=== PATIENT | male | born 1960 | race African-American/Black ===

== ENCOUNTER → 2017-09-26 | Outpatient (CLI) | payer BC ==
--- NOTE | 2017-09-26 12:07 | US ---
EXAMINATION TYPE: US venous doppler duplex LE LT DATE OF EXAM: 09/26/2017 11:27 AM COMPARISON: NONE CLINICAL HISTORY: I82.432 ACUTE VEIN THROMBOSIS. SIDE PERFORMED: Left TECHNIQUE: The lower extremity deep venous system is examined utilizing real time linear array sonog madeline with graded compression, doppler sonography and color-flow sonography. VESSELS IMAGED: External Iliac Vein (EIV) Common Femoral Vein Deep Femoral Vein Greater Saphenous Vein * Femoral Vein Popliteal Vein Small Saphenous Vein * Proximal Calf Veins (* superficial vessels) Left Leg: Positive for DVT from the popliteal to the proximal calf vein. IMPRESSION: 1. Findings are compatible with a DVT from the popliteal vein extending into the calf veins. Dr. Farrell was notified by telephone.
== END | disposition home or self-care (01) ==
LOC: RADUSWWP 11:11
PROVIDERS: ATTEND Internal Medicine
DX: I82.432 Acute embolism and thrombosis of left popliteal vein (principal)

== ENCOUNTER → 2017-12-04 | Outpatient (CLI) | payer BC ==
[2017-12-04 11:02] LABS: HCT 45.4 % (39.0-53.0); HGB 13.8 gm/dL (13.0-17.5); Hypochromasia Moderate; MCH 25.4 pg (25.0-35.0); MCHC 30.4 g/dL (31.0-37.0); MCV 83.7 fL (80.0-100.0); Mean Platelet Volume 6.9; Platelet Count 273 k/uL (150-450); RBC 5.43 m/uL (4.30-5.90); RDW 15.1 % (11.5-15.5); WBC 8.5 k/uL (3.8-10.6)
[2017-12-04 11:03] LABS: INR 1.2 (<1.2); Partial Thromboplastin Time 29.5 sec (22.0-30.0); Prothrombin Time 11.2 sec (9.0-12.0)
[2017-12-04 11:12] LABS: Anion Gap 10 mmol/L; Blood Urea Nitrogen 5 mg/dL (9-20); Calcium 9.2 mg/dL (8.4-10.2); Carbon Dioxide 25 mmol/L (22-30); Chloride 106 mmol/L (98-107); Glucose 96 mg/dL (74-99); Potassium 4.5 mmol/L (3.5-5.1); Sodium 141 mmol/L (137-145)
== END | disposition home or self-care (01) ==
LOC: LABWHC1 09:51
PROVIDERS: ATTEND Surgery Vascular Surgery
DX: Z01.812 Encounter for preprocedural laboratory examination (principal); I70.223 Atherosclerosis of native arteries of extremities with rest pain, bilateral legs
CPT/HCPCS: 36415; 80048; 85027; 85610; 85730

== ENCOUNTER → 2021-04-02 | Outpatient (CLI) | payer OTHER ==
[2021-04-02 12:02] LABS: Basophils # (A) 0.05 X 10*3/uL (0.00-0.10); Basophils % (A) 0.6 %; Eosinophils % (A) 6.7 %; HGB 13.7 g/dL (13.0-17.0); Lymphocytes # (A) 2.46 X 10*3/uL (0.90-5.00); Lymphocytes % (A) 27.7 %; MCH 30.8 pg (27.0-32.0); MCHC 31.9 g/dL (32.0-37.0); MCV 96.6 fL (80.0-97.0); Monocytes # (A) 0.89 X 10*3/uL (0.20-1.00); Neutrophils # (A) 4.85 X 10*3/uL (1.80-7.70); Neutrophils % (A) 54.6 %; Platelet Count 230 X 10*3/uL (140-440); RBC 4.45 X 10*6/uL (4.40-5.60); WBC 8.89 X 10*3/uL (4.50-10.00)
[2021-04-03 07:10] LABS: African American GFR (CKD) 94.4 (60.0-200.0); Albumin 3.9 g/dL (3.80-4.90); Albumin/Globulin Ratio 1.34 (1.60-3.17); Anion Gap 7.5 mmol/L (4.00-12.00); Calcium 9.2 mg/dL (8.7-10.3); Carbon Dioxide 22.5 mmol/L (21.6-31.8); Chol/HDL Ratio 3.68; Globulin 2.9 g/dL (1.6-3.3); LDL Cholesterol,Calculated 68.2 mg/dL (0.0-131.0); Non-African American GFR(CKD) 81.4 (60.0-200.0); Potassium 4.5 mmol/L (3.5-5.5); Total Protein 6.8 g/dL (6.2-8.2); VLDL Calculation 22.8 mg/dL (5.00-40.00)
== END | disposition home or self-care (01) ==
LOC: LABWHC1 08:50
PROVIDERS: ATTEND Physician Assistant
DX: E78.5 Hyperlipidemia, unspecified (principal); I42.9 Cardiomyopathy, unspecified
CPT/HCPCS: 36415; 80053; 80061; 82550; 85025

== ENCOUNTER → 2022-01-26 | Outpatient (CLI) | payer OTHER ==
--- NOTE | 2022-01-26 11:35 | XR ---
EXAMINATION TYPE: XR chest 2V DATE OF EXAM: 01/26/2022 COMPARISON: Chest x-ray 08/07/2017 HISTORY: Shortness of breath, cough, smoker TECHNIQUE: Frontal and lateral views of the chest are obtained. FINDINGS: There is no focal air space opacity, pleural effusion, or pneumothorax seen. The cardiac silhouette size is within normal limits. There has been interval placement of a generator in the left pectoral region, leads are present in the right atrium and ventricle. Prominent lung volume could be indicative of underlying COPD. Cardiac mediastinal silhouette is stable. There are coronary artery c alcifications, possible stent. The osseous structures are intact. IMPRESSION: No acute cardiopulmonary process.
[2022-01-26 15:10] LABS: ALT 24 U/L (10-49); AST 29 U/L (14-35); African American GFR (CKD) 46.4 (60.0-200.0); Albumin 3.2 g/dL (3.8-4.9); Albumin/Globulin Ratio 0.98 (1.60-3.17); Alkaline Phosphatase 123 U/L (41-126); BUN/Creat Ratio 8.16 Ratio (12.00-20.00); Blood Urea Nitrogen 14.6 mg/dL (9.0-27.0); Calcium 8.6 mg/dL (8.7-10.3); Carbon Dioxide 21.9 mmol/L (20.0-27.5); Chloride 104 mmol/L (96-109); Creatine Kinase 50 U/L (35-257); Globulin 3.3 g/dL (1.6-3.3); Glucose 97 mg/dL (70-110); Phosphorus 2.9 mg/dL (2.4-5.1); Potassium 4.7 mmol/L (3.5-5.5); Sodium 134 mmol/L (135-145); Total Protein 6.5 g/dL (6.2-8.2); Uric Acid 5.9 mg/dL (3.7-8.7)
[2022-01-26 15:38] LABS: Erythrocyte Sedimentation Rate 47 mm/Hr (0-20)
[2022-01-26 15:48] LABS: Basophils # (A) 0.05 X 10*3/uL (0.00-0.10); Basophils % (A) 0.6 %; Chol/HDL Ratio 4.76 Ratio; Eosinophils # (A) 0.46 X 10*3/uL (0.04-0.35); Eosinophils % (A) 5.1 %; HCT 36.4 % (39.6-50.0); HGB 10.6 g/dL (13.0-17.0); Immature Grans, Automated 0.7 %; Lymphocytes # (A) 1.13 X 10*3/uL (0.90-5.00); Lymphocytes % (A) 12.6 %; MCH 27.5 pg (27.0-32.0); MCHC 29.1 g/dL (32.0-37.0); MCV 94.3 fL (80.0-97.0); Mean Platelet Volume 13.8 fL (9.5-12.2); Monocytes # (A) 0.81 X 10*3/uL (0.20-1.00); Monocytes % (A) 9.1 %; NRBC Per 100 WBC 0 /100 WBCS (0.0-0.0); Neutrophils # (A) 6.43 X 10*3/uL (1.80-7.70); Neutrophils % (A) 71.9 %; Platelet Count 210 X 10*3/uL (140-440); RBC 3.86 X 10*6/uL (4.40-5.60); RBC Morphology NORMAL; RDW 15.3 % (11.5-14.5); WBC 8.94 X 10*3/uL (4.50-10.00)
[2022-01-26 16:39] LABS: Hepatitis A Antibody IgM Nonreactive (Nonreactive); Hepatitis B Core IgM Nonreactive (Nonreactive); Hepatitis C IgG Antibody Nonreactive (Nonreactive)
[2022-01-26 17:51] LABS: Hepatitis B Surface Antigen Confirmed reactive (Nonreactive)
[2022-01-26 18:18] LABS: Appearance,Urine Cloudy (Clear); Bilirubin,Urine Negative (Negative); Blood,Urine Large (Negative); Color,Urine Dark Yellow (Yellow); Ketones,Urine Trace mg/dL (Negative); Nitrite,Urine Negative (Negative); Specific Gravity,Urine 1.019 (1.001-1.030)
[2022-01-26 18:26] LABS: Bacteria,Urine 1+ /HPF (None Seen)
== END | disposition home or self-care (01) ==
LOC: LABWHC1 10:40
PROVIDERS: ATTEND Internal Medicine
DX: Z00.00 Encounter for general adult medical examination without abnormal findings (principal); D64.9 Anemia, unspecified; N40.0 Benign prostatic hyperplasia without lower urinary tract symptoms; J44.9 Chronic obstructive pulmonary disease, unspecified; I10 Essential (primary) hypertension; E87.8 Other disorders of electrolyte and fluid balance, not elsewhere classified; M10.9 Gout, unspecified; R31.9 Hematuria, unspecified; E78.5 Hyperlipidemia, unspecified; E11.65 Type 2 diabetes mellitus with hyperglycemia; I25.10 Atherosclerotic heart disease of native coronary artery without angina pectoris
CPT/HCPCS: 36415; 71046; 80053; 80061; 80074; 81001; 82306; 82550; 83036; 83735; 84100; 84153; 84443; 84550; 85025; 85652; 86140

== ENCOUNTER → 2022-07-14 | Outpatient (CLI) | payer MEDICARE, OTHER ==
--- NOTE | 2022-07-14 16:21 | CT ---
EXAMINATION TYPE: CT abdomen pelvis w con DATE OF EXAM: 07/14/2022 COMPARISON: NONE HISTORY: 61-year-old male colovesical fistula and recent UTI TECHNIQUE: Contiguous axial scanning of the abdomen and pelvis following administration of 70 ml Isov ue 300 IV contrast. Delayed images through the kidneys and coronal/sagittal reconstructions performe d. CT DLP: 1227 mGycm Automated exposure control for dose reduction was used. FINDINGS: LUNG BASES: Right atrial and right ventricular AICD leads noted. Heart normal size without pericardia l effusion. There is some patchy nodular groundglass and tree-in-bud changes in the basilar left lowe r lobe. No pleural effusion. LIVER/GB: Multiple hepatic cysts measuring up to 3.0 cm. There is hypervascular area of nodularity in the right hepatic dome measuring 1.5 cm. This could represent a flash filling hemangioma or vascular shunting. Large appearance to the main portal vein at 1.7 cm. The vessel remains patent. Finding is nonspecific but may be seen in setting of portal venous hypertension. No biliary ductal dilatation. I ncidental 5 mm gallstone. No abnormal gallbladder distention. PANCREAS: Punctate calcifications of the pancreatic head suggest chronic pancreatitis. Possible fat s tranding adjacent to the tail the pancreas versus edema from the adjacent left pararenal space. Corre late with amylase and lipase levels. SPLEEN: No significant abnormality is seen. ADRENALS: No significant abnormality is seen. KIDNEYS: Moderate to severe left-sided hydronephrosis. Additional hydroureter. There is abrupt cut of f of the distal left ureter at the level of lobulated soft tissue which involves the left-sided super ior aspect of the prostate gland and left posterior bladder base. The soft tissue measures up to 8.8 x 6.7 x 6.4 cm there is direct abutment with the inferior wall of the mid sigmoid colon, sagittal dhruv ge 40. There may be some loss of the fat plane on coronal image 58. No dilated small bowel, free fluid, or free air. There is moderate to large stool burden. Oral contra st has progressed into the ascending colon. Postsurgical changes of aortobifemoral bypass graft which remains patent. Abnormal changes to the bladder as mentioned above. A number of left-sided pelvic phleboliths are pre sent no abnormal fluid collection in the pelvis. No pelvic lymphadenopathy seen. Bones: Suspect prominent bony enthesopathy from the anterior aspects of the superior pubic rami. Mild degenerative change of both hips. Facet arthropathy lower lumbar spine. Mild degenerative disc disea se throughout. IMPRESSION: 1. LARGE LOBULATED MASS MEASURING 8.8 CM CENTERED ALONG THE LEFT SIDE AND SUPERIOR ASPECT OF THE PROS MARIEE GLAND AND LEFT POSTERIOR BASE OF THE BLADDER. THE MASS SHOWS EXTENSIVE INVOLVEMENT ALONG THE POS TERIOR WALL OF THE BLADDER. CORRELATE FOR INVADING PROSTATE CANCER VERSUS UROTHELIAL CARCINOMA. 2. THE MASS RESULTS IN ABRUPT CUT OFF OF THE DISTAL LEFT URETER. THERE IS SECONDARY MODERATE TO SEVER E LEFT HYDRONEPHROSIS. THE MASS DOES ABUT THE INFERIOR WALL OF THE MID SIGMOID COLON AND ON CORONAL S ERIES, THERE MAY BE SOME LOSS OF THE INTERVENING FAT PLANE. THIS MAY REFLECT EARLY SEROSAL INVASION. NO ANNALISE FISTULA SEEN. 3. QUESTIONABLE FAT STRANDING ADJACENT TO THE TAIL OF THE PANCREAS VERSUS REACTIVE EDEMA FROM THE ADJ ACENT LEFT PARARENAL SPACE. CORRELATE WITH AMYLASE AND LIPASE LEVELS TO EXCLUDE ANY ACUTE PANCREATITI S. 4. NODULAR GROUNDGLASS INFILTRATE AT THE BASILAR LEFT LOWER LOBE. CORRELATE FOR INFECTIOUS OR ASPIRAT ION PNEUMONITIS. 5. PATENT AORTOBIFEMORAL BYPASS GRAFT.
== END | disposition home or self-care (01) ==
LOC: RADCTMAIN 13:25
PROVIDERS: ATTEND Urology
DX: N32.1 Vesicointestinal fistula (principal); N32.89 Other specified disorders of bladder; N13.30 Unspecified hydronephrosis; R91.8 Other nonspecific abnormal finding of lung field; Z95.1 Presence of aortocoronary bypass graft; Z87.440 Personal history of urinary (tract) infections
CPT/HCPCS: 74177; Q9967

== ENCOUNTER → 2022-07-21 | Outpatient (CLI) | payer OTHER ==
[2022-07-21 18:35] LABS: African American GFR (CKD) 50.4 (60.0-200.0); Albumin 3.4 g/dL (3.8-4.9); Albumin/Globulin Ratio 1.14 (1.60-3.17); Anion Gap 6.4 mmol/L (10.00-18.00); BUN/Creat Ratio 7.84 Ratio (12.00-20.00); Blood Urea Nitrogen 13.1 mg/dL (9.0-27.0); Calcium 9.2 mg/dL (8.7-10.3); Carbon Dioxide 25.4 mmol/L (20.0-27.5); Non-African American GFR(CKD) 43.5 (60.0-200.0); Potassium 5.7 mmol/L (3.5-5.5); Total Bilirubin 0.5 mg/dL (0.30-1.20); Total Protein 6.4 g/dL (6.2-8.2)
[2022-07-21 18:45] LABS: Basophils # (A) 0.08 X 10*3/uL (0.00-0.10); Eosinophils # (A) 0.66 X 10*3/uL (0.04-0.35); Eosinophils % (A) 8.7 %; HCT 39.2 % (39.6-50.0); HGB 11.8 g/dL (13.0-17.0); Immature Grans, Automated 0.5 %; Lymphocytes # (A) 1.71 X 10*3/uL (0.90-5.00); Lymphocytes % (A) 22.4 %; MCH 28.9 pg (27.0-32.0); MCHC 30.1 g/dL (32.0-37.0); MCV 95.8 fL (80.0-97.0); Monocytes # (A) 0.69 X 10*3/uL (0.20-1.00); NRBC Per 100 WBC 0 /100 WBCS (0.0-0.0); Neutrophils # (A) 4.45 X 10*3/uL (1.80-7.70); Neutrophils % (A) 58.4 %; Platelet Count 295 X 10*3/uL (140-440); RBC 4.09 X 10*6/uL (4.40-5.60); RDW 13.6 % (11.5-14.5); WBC 7.63 X 10*3/uL (4.50-10.00)
[2022-07-21 20:18] LABS: Appearance,Urine Cloudy (Clear); Bilirubin,Urine Negative (Negative); Blood,Urine Large (Negative); Color,Urine Yellow (Yellow); Ketones,Urine Negative (Negative); Nitrite,Urine Negative (Negative); Specific Gravity,Urine 1.016 (1.001-1.030)
[2022-07-21 22:23] LABS: Bacteria,Urine Trace /HPF (None Seen); Yeast (UA) Present /LPF (None Seen)
== END | disposition home or self-care (01) ==
LOC: LABWHC1 10:17
PROVIDERS: ATTEND Urology
DX: Z01.812 Encounter for preprocedural laboratory examination (principal); D49.4 Neoplasm of unspecified behavior of bladder; R31.29 Other microscopic hematuria
CPT/HCPCS: 36415; 80053; 81001; 85025; 87086

== ENCOUNTER 2022-07-26 08:39 | Day surgery (SDC) | payer OTHER ==
--- NOTE | 2022-07-25 18:13 | P.GSHP ---
History of Present Illness H&P Date: 07/25/22 61 yo male sent by Dr Eduardo in the end of april because of a psa of 6.1 He had an e coli uti so therefore he was treated with antibiotics with a return visit for cysto and repeat psa. He returned stating that the symptoms of difficulty had worsened and the uti appeared to be still present. the rectal exam showed a 30 gm benign feeling prostate but cysto showed marled lobulation and edema of the left lateral wall of the bladder worrisome for a colovesical fistula. He thus underwent a ct urogram and this showed a large mass like effect in the bladder. He thus comes for anesthetic cysto with biopsies to r/o bladder or prostate cancer. - Constitutional Constitutional: Denies chills, Denies fever - EENT Eyes: denies blurred vision, denies pain Ears, nose, mouth and throat: Denies headache, Denies sore throat - Cardiovascular Cardiovascular: Denies chest pain, Denies shortness of breath - Respiratory Respiratory: Denies cough, Denies 7 - Gastrointestinal Gastrointestinal: Denies abdominal pain, Denies diarrhea, Denies nausea, Denies vomiting - Genitourinary (Female) Genitourinary: Denies dysuria, Denies hematuria - Genitourinary (Male) Genitourinary: Denies dysuria, Denies hematuria - Musculoskeletal Musculoskeletal: Denies myalgias - Integumentary Integumentary: Denies pruritus, Denies rash - Neurological Neurological: Denies numbness, Denies weakness - Psychiatric Psychiatric: Denies anxiety, Denies depression - Endocrine Endocrine: Denies fatigue, Denies weight change Past Medical History Past Medical History: Coronary Artery Disease (CAD), Heart Failure, GI Bleed, Hypertension, Myocardial Infarction (AR), Prostate Disorder Additional Past Medical History / Comment(s): Peripheral vascular disease, past medical chart listed high cholesterol pt didn't recall this. Last Myocardial Infarction Date:: 04/13/2017 History of Any Multi-Drug Resistant Organisms: MRSA Date of last positivie culture/infection: 08/26/18 MDRO Source:: leg Past Surgical History: AICD, Heart Catheterization With Stent, Prostate Surgery Additional Past Surgical History / Comment(s): ICD= CustomMade [employer] MRI- [id number], #[id number] (PER DR AHMED FOR HEART FAILURE. 05-18-16 heart cath w/stent to lad. past sx include: stents to moise legs 2010, 1996 growth removed lt side of pelvis-benign, prostate sx "to improve stream". Past Anesthesia/Blood Transfusion Reactions: No Reported Reaction Additional Past Anesthesia/Blood Transfusion Reaction / Comment(s): claustrophobia Date of Last Stent Placement:: 04/13/2017 Type of Cardiac Device: AICD Device Placement Date:: 04/10/18 Past Psychological History: No Psychological Hx Reported Additional Psychological History / Comment(s): RETIRED. Smoking Status: Current every day smoker Past Alcohol Use History: Occasional Additional Past Alcohol Use History / Comment(s): started smoking at age 19- smokes 1 ppd. Past Drug Use History: Marijuana - Past Family History Father Family Medical History: Diabetes Mellitus, Vascular Disorder Mother Family Medical History: Cancer Additional Family Medical History / Comment(s): lung cancer Medications and Allergies Home Medications Medication Instructions Recorded Confirmed Type Atorvastatin [Lipitor] 80 mg PO HS 08/07/17 07/24/22 History carvediloL [Coreg] 6.25 mg PO BID 08/07/17 07/24/22 History Amoxic-Pot Clav 875-125Mg 1 mg PO BID 07/24/22 07/24/22 History [Augmentin 875-125] Aspirin [Adult Low Dose Aspirin EC] 81 mg PO DAILY 07/24/22 07/24/22 History Sacubitril/Valsartan [Entresto 49 1 tab PO BID 07/24/22 07/24/22 History mg-51 mg Tablet] Allergies Allergy/AdvReac Type Severity Reaction Status Date / Time No Known Allergies Allergy Verified 07/24/22 08:46 Surgical - Exam - General well developed, well nourished, no distress - Eyes normal ocular movement, no icteric - ENT no hearing loss, no congestion - Neck no masses, trachea midline - Respiratory normal respiratory effort, clear to auscultation - Abdomen Abdomen: soft, non tender, no guarding, no rigid, no rebound - Integumentary no rash, no abnormal pigmentation - Neurologic no disoriented, no combative - Psychiatric oriented to time, oriented to person, oriented to place, speech is normal, memory intact Results - Imaging CT scan - abdomen: report reviewed, image reviewed CT scan - pelvis: report reviewed, image reviewed Assessment and Plan Assessment: Impression: Bladder wall mass r/o ca bladder, ca prostate or other Plan: cysto with transurethral biopsies of mass
[~2022-07-26 08:39] MED LIST: AMPICILLIN 1,000 MG in SODIUM CHLORIDE 0.9% 50 ML IVPB PRN; DEXAMETHASONE SOD PHOSPHATE 4 MG/ML 1 ML VIAL IV ONE; GENTAMICIN 120 MG in SODIUM CHLORIDE 0.9% 100 ML IVPB PRN; HYDROmorphone 0.5 MG/0.5 ML SYRINGE IVP PRN; LIDOCAINE 1% (10MG/ML) FOR IV START INTRADERMA PRN; MIDAZOLAM 2 MG/2 ML VIAL IV PRN; ONDANSETRON 4 MG/2 ML VIAL IVP ONE
[2022-07-26] MEDS ORDERED: LACTATED RINGERS 1,000 ML IV ONE (09:08)
[2022-07-26 09:53] LABS: Albumin 3.3 g/dL (3.5-5.0); Calcium 8.4 mg/dL (8.4-10.2); Potassium 4.2 mmol/L (3.5-5.1); Total Bilirubin 0.9 mg/dL (0.2-1.3); Total Protein 6.7 g/dL (6.3-8.2)
[2022-07-26] MEDS ORDERED: fentaNYL (PF) 50 MCG/ML 2 ML AMP ONE (10:17)
[2022-07-26] MEDS ORDERED: ONDANSETRON 4 MG/2 ML VIAL ONE (10:17)
[2022-07-26] MEDS ORDERED: HYDROmorphone (PF) 1 MG/ML ONE (10:17)
[2022-07-26] MEDS ORDERED: GENTAMICIN 40 MG/ML 2 ML VIAL ONE (10:17)
[2022-07-26] MEDS ORDERED: PROPOFOL 10 MG/ML 20 ML VIAL IV ONE (10:17)
[2022-07-26] MEDS ORDERED: MIDAZOLAM 2 MG/2 ML VIAL ONE (10:17)
[2022-07-26] MEDS ORDERED: LIDOCAINE 2% INJ 20 MG/ML (2 ML VIAL) ONE (10:17)
[2022-07-26] MEDS ORDERED: ACETAMINOPHEN TAB 325 MG TAB PO PRN (13:05)
[2022-07-26] MEDS ORDERED: BELLADONNA-OPIUM 16.2-60 MG 1 EACH SUPP RECTAL PRN (13:05)
[2022-07-26] MEDS ORDERED: MAG HYDROX/AL HYDROX/SIMETH 30 ML CUP PO PRN (13:05)
--- NOTE | 2022-07-26 14:39 | P.OP ---
Date of Procedure: 07/26/22 Preoperative Diagnosis: gross hematuria, clot urinary retention, bladder mass Postoperative Diagnosis: same secondary to probable prostate cancer Procedure(s) Performed: cystoscopy, transurethral resection of tumor emanating from prostate extending in the bladder Surgeon: Chiki Willett Estimated Blood Loss (ml): 100 Pathology: other (proste/bladder) Condition: stable Disposition: PACU Indications for Procedure: the patient is 61. He was sent to me for a PSA of 6. at that time he had a E. coli urinary infection therefore the plan was to treat with antibiotics and repeat. he came back a few weeks later and the urine was still infected. the patient thus underwent cystoscopy identified a mass in the bladder. I was concerned about a colovesical fistula. a computed tomography scan was obtained and it appeared as if there is a very large mass emanating from the prostate. he comes for resection and biopsy. Description of Procedure: The patient is brought to the operating suite. He is given general anesthesia. He's placed in lithotomy position with sterile prep and drape. Cystoscopy with a 22-Bangladeshi sheath and Foroblique lens identifies a normal anterior urethra. The prostatic urethra is quite irregular. There is nodularity throughout and obstructing. The nodularity extends into the bladder wall and is very difficult to see as it is quite vascular and bleeds easily. There appears to be very large prominent middle lobe obstructing the advancement of the scope into the bladder. There is also a large amount of tumor in the left lateral wall and trigone. I then dilate the urethra to 30-Bangladeshi with Loving sounds. Under direct vision I introduced the resectoscope sheath Foroblique lens up. I put in these bipolar super loop and I first resect the left lateral bladder area of tumor. I then resect the prominent intravesical middle lobe. I then introduced the plasma button and fulgurated this area as it is bleeding significantly. I fulgurated and vaporized tumor on the left lateral bladder wall left trigone and middle lobe and even the anterior bladder neck. I then irrigate the bladder free of tumor with Ellik evacuator. I reinspected the area of resection and there is no significant bleeding but obviously a significant amount of tissue remaining. I suspect this is invasive prostate cancer. Even though the patient had a normal rectal examination and PSA of only 6 my visual inspection identifies this to be a locally advanced prostate cancer. The ureteral orifices are not identifiable. I removed the resectoscope and I introduced a 22-Bangladeshi three-way catheter with 30 mL balloon. The catheter irrigated freely and is a very light pink to clear urine with irrigation. The patient is awake and returned recovery room in good condition Impression this patient appears to have a locally advanced prostate cancer extending into the bladder and into the trigone. The patient will be admitted to the hospital for irrigation. He'll be observed in the catheter remain in a few days. Pending the biopsy report as to further recommendations. Patient's condition is good.
[2022-07-26] MEDS: carvediloL 6.25 MG TAB PO SCH (17:53)
[2022-07-26] MEDS: AMOXIC-POT CLAV 875-125MG 1 EACH TAB PO SCH (21:27)
[2022-07-26] MEDS: ATORVASTATIN 80 MG TAB PO SCH (21:27)
[2022-07-26] MEDS: SACUBITRIL/VALSARTAN 49 MG-51 MG TABLET PO SCH (21:27)
[2022-07-26] MEDS: DOCUSATE 100 MG CAP PO SCH (21:27)
[2022-07-26] MEDS ORDERED: SODIUM CHLORIDE 0.9% IRRIGATIO 3,000 ML IRRIGATION ONE (21:40)
[2022-07-26] MEDS: LACTATED RINGERS 1,000 ML IV SCH (22:44)
[2022-07-26] MEDS: DEXTROSE 5%-0.45% NACL 1,000 ML IV SCH (22:44)
[2022-07-27] MEDS: DEXTROSE 5%-0.45% NACL 1,000 ML IV SCH ×2 (04:15→19:54)
[2022-07-27] MEDS: carvediloL 6.25 MG TAB PO SCH ×2 (06:48→17:12)
[2022-07-27] MEDS: DOCUSATE 100 MG CAP PO SCH ×2 (09:17→21:16)
[2022-07-27] MEDS: SACUBITRIL/VALSARTAN 49 MG-51 MG TABLET PO SCH ×2 (09:17→21:15)
[2022-07-27] MEDS: AMOXIC-POT CLAV 875-125MG 1 EACH TAB PO SCH ×2 (09:17→21:16)
[2022-07-27] MEDS: LACTATED RINGERS 1,000 ML IV SCH (19:54)
[2022-07-27] MEDS: ATORVASTATIN 80 MG TAB PO SCH (21:16)
[2022-07-28] MEDS: DEXTROSE 5%-0.45% NACL 1,000 ML IV SCH (04:22)
[2022-07-28] MEDS: carvediloL 6.25 MG TAB PO SCH (06:48)
[2022-07-28 07:45] VITALS: BP 106/70; PULSE 69; RESP 17; TEMP 98.4
--- NOTE | 2022-07-28 08:14 | P.PN ---
Progress Note - Text Progress Note Date: 07/27/22 The patient was seen in the late morning on 07/27/2022. At that time, continuous bladder irrigation was running slowly and the urine was faintly pink tinged. He was afebrile with stable vital signs, and had no complaints. Continuous bladder irrigation was discontinued at that time.
--- NOTE | 2022-07-28 08:16 | P.DS ---
Providers Expected date of discharge: 07/28/22 Attending physician: Chiki Willett Primary care physician: Bryant Juarezkatie [facility] Course: On the day of admission, the patient underwent resection of tumor which appeared to be extending from the prostate into the bladder. A three-way Acevedo catheter was placed. Continuous bladder irrigation was discontinued on the first postoperative day. On the second postoperative day, at the time of discharge, urine was pink tinged without clots. Patient had no complaints. He was afebrile with stable vital signs. Procedures: Cystoscopy, bipolar transurethral resection of prostate (TURP) in 07/26/2022. Patient Condition at Discharge: Fair Plan - Discharge Summary Discharge Rx Participant: No New Discharge Prescriptions: No Action carvediloL [Coreg] 6.25 mg PO BID Atorvastatin [Lipitor] 80 mg PO HS Aspirin [Adult Low Dose Aspirin EC] 81 mg PO DAILY Sacubitril/Valsartan [Entresto 49 mg-51 mg Tablet] 1 tab PO BID Amoxic-Pot Clav 875-125Mg [Augmentin 875-125] 1 mg PO BID Discharge Medication List Atorvastatin [Lipitor] 80 mg PO HS 08/07/17 [History] carvediloL [Coreg] 6.25 mg PO BID 08/07/17 [History] Amoxic-Pot Clav 875-125Mg [Augmentin 875-125] 1 mg PO BID 07/24/22 [History] Aspirin [Adult Low Dose Aspirin EC] 81 mg PO DAILY 07/24/22 [History] Sacubitril/Valsartan [Entresto 49 mg-51 mg Tablet] 1 tab PO BID 07/24/22 [History] Follow up Appointment(s)/Referral(s): Chiki Willett MD [STAFF PHYSICIAN] - 1 Week Activity/Diet/Wound Care/Special Instructions: Discharge home with Acevedo catheter to leg bag. Plug Acevedo catheter irrigation port. Drink plenty of fluids. Avoid strenuous activity. Discharge Disposition: HOME SELF-CARE
[2022-07-28] MEDS: SACUBITRIL/VALSARTAN 49 MG-51 MG TABLET PO SCH (08:33)
== END 2022-07-28 10:39 | disposition home or self-care (01) ==
LOC: OR 08:39 → 4SSUR 12:04 → OR 07-28 10:39
PROVIDERS: ATTEND Urology
DX: D49.4 Neoplasm of unspecified behavior of bladder (principal); N40.1 Benign prostatic hyperplasia with lower urinary tract symptoms; R33.8 Other retention of urine; I25.10 Atherosclerotic heart disease of native coronary artery without angina pectoris; I11.0 Hypertensive heart disease with heart failure; I50.9 Heart failure, unspecified; I10 Essential (primary) hypertension; I25.2 Old myocardial infarction; I73.9 Peripheral vascular disease, unspecified; E78.00 Pure hypercholesterolemia, unspecified; Z86.14 Personal history of Methicillin resistant Staphylococcus aureus infection; Z95.5 Presence of coronary angioplasty implant and graft; Z98.890 Other specified postprocedural states; Z87.438 Personal history of other diseases of male genital organs; F40.240 Claustrophobia; F17.210 Nicotine dependence, cigarettes, uncomplicated; F10.20 Alcohol dependence, uncomplicated; F12.20 Cannabis dependence, uncomplicated; Z83.3 Family history of diabetes mellitus; Z82.0 Family history of epilepsy and other diseases of the nervous system; Z80.2 Family history of malignant neoplasm of other respiratory and intrathoracic organs; Z79.01 Long term (current) use of anticoagulants; Z79.02 Long term (current) use of antithrombotics/antiplatelets; Z79.82 Long term (current) use of aspirin
CPT/HCPCS: 80053; 52601; J2250; J1580; J1100; J2405; J3010; J1170; J2704; J2001; 88307; 88341; 88342

== ENCOUNTER → 2022-08-04 | Outpatient (CLI) | payer OTHER ==
--- NOTE | 2022-08-04 11:44 | CT ---
EXAMINATION TYPE: CT chest w con DATE OF EXAM: 08/04/2022 COMPARISON: None HISTORY: Recently diagnosed with bladder ca CT DLP: 204.30 mGycm Automated exposure control for dose reduction was used. CONTRAST: CT scan of the chest is performed with IV Contrast, patient injected with 70 mL of Isovue 300. FINDINGS: LUNGS: Emphysematous change noted. The lungs are grossly clear, there is no concerning parenchymal ma ss or nodule identified. There is no pleural effusion or pneumothorax seen. The tracheobronchial t ree is patent. MEDIASTINUM: There are no greater than 1 cm hilar or mediastinal lymph nodes. No pericardial effusi on is seen. Thoracic aorta is of normal caliber. The heart is not enlarged. Pacer device is in place . UPPER ABDOMEN: Hepatic cystic changes seen. OTHER: No additional significant abnormality is seen. IMPRESSION: No evidence for metastatic disease to the chest.
== END | disposition home or self-care (01) ==
LOC: RADCTMAIN 10:31
PROVIDERS: ATTEND Urology
DX: C67.9 Malignant neoplasm of bladder, unspecified (principal)
CPT/HCPCS: 71260; Q9967

== ENCOUNTER → 2023-05-17 | Outpatient (CLI) | payer OTHER ==
--- NOTE | 2023-05-18 09:11 | CT ---
EXAMINATION TYPE: CT ChestAbdPelvis wo/w con CT DLP: 2009.0 mGycm, Automated exposure control for dose reduction was used. DATE OF EXAM: 05/17/2023 4:31 PM COMPARISON: 08/04/2022, 07/14/2022 CLINICAL INDICATION:Male, 62 years old with history of BLADDER CANCER C67.1; PHH, Bladder cancer Technique: Multiple axial images of the chest, abdomen, and pelvis were obtained. Two-dimensional cor onal and sagittal reconstructions were obtained. Contrast used:80 cc mL of Isovue 300 without and with IV Contrast, Oral contrast used: with Oral Contrast Findings: CHEST: LUNGS/ PLEURA: Paraseptal and centrilobular emphysema changes are present throughout the lungs. No ev idence focal consolidation, pneumothorax or pleural effusion. AIRWAY: Patent and unremarkable. HEART: Size within normal limits. Severe coronary artery calcifications. Cardiac conduction leads ter minating in the right ventricle and right atrium. MEDIASTINUM: No gross evidence of adenopathy. VASCULATURE: No aortic aneurysm. MUSCULOSKELETAL: No acute osseous abnormalities. SOFT TISSUES/LYMPH NODES: Unremarkable. LOWER NECK: No significant findings. ABDOMEN: ABDOMEN LIVER: Multiple hepatic cysts is present throughout the liver. GALLBLADDER AND BILE DUCTS: Unremarkable. PANCREAS: Unremarkable. SPLEEN: Unremarkable. ADRENAL GLANDS: Unremarkable. KIDNEYS AND URETERS: No evidence of hydronephrosis or renal calculus. The ureters are unremarkable. PELVIS BLADDER: Interval postsurgical change. Spectrum ileal loop conduit present. REPRODUCTIVE: prostate gland appears surgically absent. Just left of the prostate gland is irregular mass near the perineum series 8 image 621 measuring 4.9 x 3 point or centimeters. There is multiple h eterogenous mass within the left pelvis along the pelvic sidewall measuring at least 6.6 x 3.7 cm. Sm aller focus of disease is seen more posteriorly into the sacrum measuring 4.0 x 3.3 cm. Right externa l iliac chain lymph nodes measuring 5.8 x 3.2 cm. Right common iliac chain lymph node measuring 2.7 c m. ABDOMEN & PELVIS STOMACH AND BOWEL: No evidence of bowel obstruction. PERITONEUM: No evidence of pneumoperitoneum or free fluid. VASCULATURE: No evidence of aortic aneurysm. Aortobiiliac stent graft is present and felt to be pain. Arm streak artifact limits evaluation at some levels. MUSCULOSKELETAL: Indeterminate lucency within the L5 vertebrae remains present measuring up to 8 mm. Left femoral head sclerotic area increased. LYMPH NODES/SOFT TISSUE/ABDOMINAL WALL: No gross evidence for lymphadenopathy. Right inguinal region lymph nodes which are prominent measuring up to 7 mm in short axis. Retroperito fidelia lymphadenopathy along alvin common and external iliac chains and around the retroperitoneal regio n which are poorly visualized due to patient's arms phase of contrast. Additional lymph nodes as desc ribed above in the reproductive section. IMPRESSION: 1. Postsurgical changes with findings compatible with persistent/residual disease predominantly the pelvis with scattered lymphadenopathy. Further evaluation with PET/CT is recommended. 2. Indeterminate L5 vertebral body lucency similar to 07/14/2022. If instability finding could relate to vertebral body hemangioma. 3. Increased sclerosis within the left femoral head which is indeterminate.1
== END | disposition home or self-care (01) ==
LOC: RADCTMAIN 14:02
PROVIDERS: ATTEND Urology
DX: C67.1 Malignant neoplasm of dome of bladder (principal); M89.8X6 Other specified disorders of bone, lower leg; Z98.890 Other specified postprocedural states
CPT/HCPCS: 71270; 74178; Q9967

== ENCOUNTER → 2023-06-01 | Outpatient (CLI) | payer OTHER ==
[2023-06-01 22:10] LABS: Basophils # (A) 0.05 X 10*3/uL (0.00-0.10); Basophils % (A) 0.5 %; Eosinophils # (A) 0.52 X 10*3/uL (0.04-0.35); Eosinophils % (A) 5.7 %; HCT 40.2 % (39.6-50.0); HGB 11.9 d/dL (13.0-17.0); Lymphocytes # (A) 2.29 X 10*3/uL (0.90-5.00); Lymphocytes % (A) 25.1 %; MCH 26.8 pg (27.0-32.0); MCHC 29.6 d/dL (32.0-37.0); MCV 90.5 FL (80.0-97.0); Mean Platelet Volume 10.3 FL (9.5-12.2); Monocytes # (A) 0.93 X 10*3/uL (0.20-1.00); Monocytes % (A) 10.2 %; NRBC Per 100 WBC 0 X 10*3/uL (0.00-0.01); Neutrophils # (A) 5.28 X 10*3/uL (1.80-7.70); Platelet Count 219 X 10*3/uL (140-440); RBC 4.44 X 10*6/uL (4.40-5.60); RDW 16.6 % (11.5-14.5); WBC 9.12 X 10*3/uL (4.50-10.00)
[2023-06-01 23:02] LABS: % Iron Saturation 11.11 (15.00-50.00); ALT 23 U/L (10-49); AST 37 U/L (14-35); Albumin 3.9 d/dL (3.8-4.9); Albumin/Globulin Ratio 1.15 Ratio (1.60-3.17); Alkaline Phosphatase 143 U/L (41-126); BUN/Creat Ratio 16.36 Ratio (12.00-20.00); Blood Urea Nitrogen 22.9 mg/dL (9.0-27.0); Calcium 9.7 mg/dL (8.7-10.3); Carbon Dioxide 24.9 mmol/L (21.6-31.8); Chloride 104 mmol/L (96-109); Chol/HDL Ratio 3.21 Ratio; Globulin 3.4 d/dL (1.6-3.3); Glucose 94 mg/dL (70-110); Iron 30 UG/DL (65-175); LDL Cholesterol,Calculated 50.5 mg/dL (0.0-131.0); Potassium 5.2 mmol/L (3.5-5.5); Sodium 139 mmol/L (135-145); Total Bilirubin 0.6 mg/dL (0.3-1.2); Total Iron Binding Capacity 270 UG/DL (228-460); Total Protein 7.3 d/dL (6.2-8.2); VLDL Calculation 17.72 mg/dL (5.00-40.00)
== END | disposition home or self-care (01) ==
LOC: LABWHC1 13:33
PROVIDERS: ATTEND Internal Medicine
DX: I12.9 Hypertensive chronic kidney disease with stage 1 through stage 4 chronic kidney disease, or unspecified chronic kidney disease (principal); C61 Malignant neoplasm of prostate; I73.9 Peripheral vascular disease, unspecified; D63.1 Anemia in chronic kidney disease; M79.605 Pain in left leg; N18.30 Chronic kidney disease, stage 3 unspecified; R09.89 Other specified symptoms and signs involving the circulatory and respiratory systems
CPT/HCPCS: 36415; 80053; 80061; 82306; 82728; 83036; 83540; 83550; 84443; 85025; 85379